=== PATIENT | female | born 1930 | race Caucasian/White ===

== ENCOUNTER 2016-09-25 08:51 | Inpatient (IN) | payer MEDICARE ==
[2016-09-25] MEDS ORDERED: NS 0.9% 1000 ML* 1,000 ML IV ONE (08:54)
--- NOTE | 2016-09-25 09:14 | RAD ---
Indication: Unresponsive. CT of the brain was performed without IV contrast. Comparison is made with previous exam dated August 03, 2011. Ventricular structures are midline. No midline shift is noted. The extra-axial spaces are unremarkable. Periventricular lucency consistent with chronic ischemic White matter change is noted. IMPRESSION: Chronic ischemic change without evidence of intracranial mass or hemorrhage. Results were discussed with Dr. Akers at 9:10 AM.
[2016-09-25] MEDS ORDERED: Iodixanol* (CONTRAST) 320 MG/ML 100 ML SDV IV ONE (09:21)
[2016-09-25 09:30] LABS: Hematocrit 44 % (35-47); Hemoglobin 14.1 g/dl (12.0-16.0); Mean Corpuscular HGB Conc 32 g/dl (31-36); Mean Corpuscular Hemoglobin 31 pg (27-31); Mean Corpuscular Volume 98 fL (80-97); Mean Platelet Volume 8 um3 (7.4-10.4); Red Cell Distribution Width 16 % (10.5-15)
[2016-09-25 09:35] LABS: Add Diff/Slide Review? Slide Review Added; Comments Flag Yes
[2016-09-25 09:47] LABS: Troponin I 0.03 ng/mL (<0.04)
[2016-09-25 09:49] LABS: Albumin 3.7 g/dL (3.2-5.2); BUN/Creatinine Ratio 26.3 (8-20); Calcium 9.7 mg/dL (8.6-10.3); EGFR Non-African American 36.6 (>60); Globulin 3.5 g/dL (2-4); HDL Cholesterol 53.1 mg/dL; Potassium 4.4 mmol/L (3.5-5.0); Total Bilirubin 0.5 mg/dL (0.2-1.0); Total Protein 7.2 g/dL (6.4-8.9)
--- NOTE | 2016-09-25 10:00 | RAD ---
INDICATION: Code hopper COMPARISON: August 23, 2014 TECHNIQUE: An AP portable view obtained at 0940 hours is submitted. The examination is rotated FINDINGS: Bones/Soft Tissues: There are no acute bony findings. Cardiomediastinal: The cardiac silhouette is normal when allowing for the degree of image rotation. Lungs: There are no infiltrates. There is vascular crowding due to the expiratory nature of the image. Pleura: There are no pleural effusions. There is biapical pleural scarring with calcification, unchanged. Other: None IMPRESSION: MILDLY LIMITED EXAMINATION DUE TO POSITIONING. NO ACTIVE DISEASE.
--- NOTE | 2016-09-25 10:22 | RAD ---
HISTORY: Neurological changes, stroke COMPARISONS: Carotid ultrasound dated September 25, 2014 TECHNIQUE: Multiple contiguous axial CT scans were obtained of the head and neck After the administration of nonionic intravenous contrast timed to the systemic arterial phase of contrast enhancement. Coronal and sagittal multiplanar reformations are submitted for review. Multiple 3-D maximum intensity projection reconstructions are also submitted for review. FINDINGS: Evaluation is limited by patient swallowing motion artifact. CTA NECK: AORTIC ARCH: There is a bovine configuration, with the left common carotid artery originating from the brachiocephalic trunk. There is atherosclerosis of the thoracic aorta. There is no ostial or proximal stenosis of the cephalic great vessels. RIGHT VERTEBRAL ARTERY: The right vertebral artery is patent along its course, without stenosis. LEFT VERTEBRAL ARTERY: The left vertebral artery is patent along its course, without stenosis. DOMINANCE: The left vertebral artery is dominant. RIGHT COMMON CAROTID ARTERY: The right common carotid artery is patent. The right carotid bifurcation occurs at C4-C5 RIGHT INTERNAL CAROTID ARTERY: There is calcified atherosclerotic plaque of the right carotid bifurcation. Evaluation of the right internal carotid artery diameter by NASCET criteria is limited by patient swallowing motion artifact. There is no appreciable high-grade stenosis. The right internal carotid artery is tortuous. RIGHT EXTERNAL CAROTID ARTERY: The right external carotid artery is unremarkable. LEFT COMMON CAROTID ARTERY: The left common carotid artery is patent. The left carotid bifurcation occurs at C4-C5 LEFT INTERNAL CAROTID ARTERY: There is no left internal carotid artery stenosis by NASCET criteria. Left internal carotid artery is tortuous. LEFT EXTERNAL CAROTID ARTERY: The left external carotid artery is unremarkable. VENOUS CIRCULATION: The venous system is unremarkable. SALIVARY GLANDS: The parotid glands, submandibular glands, sublingual glands are normal. NASAL CAVITY/NASOPHARYNX: The nasal cavity and nasopharynx are normal. ORAL CAVITY/OROPHARYNX: The oral cavity is obscured by streak artifact from dental amalgam. The visualized oral cavity and oropharynx are unremarkable. LARYNGEAL APPARATUS/HYPOPHARYNX: The laryngeal apparatus and hypopharynx are normal. UPPER AIRWAY/UPPER ESOPHAGUS: The visualized upper airway and esophagus are normal. LUNG APICES: There are calcified pleural plaques THYROID GLAND: The thyroid gland is normal. LYMPH NODES: There is no lymphadenopathy by size criteria. BONES AND SOFT TISSUES: Degenerative changes are noted of the spine CTA HEAD: INTRACRANIAL CIRCULATION: There is occlusion of the posterior division M2 segment of the left middle cerebral artery. There is an associated parenchymal perfusion defect of the left posterior frontal lobe and parietal lobe The anterior communicating artery complex is clear. There is a origin of the right posterior cerebral artery. VENOUS CIRCULATION: The venous system is unremarkable. PERFUSION: As noted above, there is a left posterior frontal/parietal perfusion defect HEMORRHAGE/INFARCT: There is no hemorrhage. There is no appreciable acute infarct. MASSES/SHIFT: There is no mass or shift. EXTRA-AXIAL SPACES: There are no extra-axial fluid collections. SULCI AND VENTRICLES: The sulci and ventricles are normal in size and position for the patient's stated age. CEREBRUM: There is hypoattenuation of the periventricular and subcortical white matter. BRAINSTEM: There are no focal parenchymal abnormalities. CEREBELLUM: There are no focal parenchymal abnormalities. PARANASAL SINUSES: The paranasal sinuses are clear. ORBITS: The orbits are unremarkable. BONES AND SOFT TISSUE: No bone or soft tissue abnormalities are noted. OTHER: There is no abnormal enhancement. IMPRESSION: 1. THERE IS OCCLUSION OF THE M2 SEGMENT OF THE LEFT MIDDLE CEREBRAL ARTERY WITH ASSOCIATED PERFUSION DEFECT OF THE LEFT POSTERIOR FRONTAL AND PARIETAL LOBE. 2. ATHEROSCLEROSIS. 3. NO LEFT INTERNAL CAROTID ARTERY STENOSIS BY NASCET CRITERIA. EVALUATION OF THE RIGHT INTERNAL CAROTID ARTERY IS LIMITED BY PATIENT SWALLOWING MOTION ARTIFACT. 4. CALCIFIED PLEURAL PLAQUES. PRELIMINARY FINDINGS WERE DISCUSSED WITH DR. CLEMENTS AT APPROXIMATELY 10:17 AM ON SEPTEMBER 25, 2016. CPT II Codes: 3100F
[2016-09-25] MEDS: Morphine INJ* 2 MG/ML 1 ML SYRINGE IV PRN ×3 (11:33→14:20)
[2016-09-25] MEDS ORDERED: Morphine INJ* 2 MG/ML 1 ML SYRINGE ONE (11:33)
[2016-09-25] MEDS: Atropine 1% (ORAL/SL)* 15 ML BTL SL PRN ×2 (12:29→19:37)
[2016-09-25 12:53] VITALS: BP 171/71
--- NOTE | 2016-09-25 13:30 | HP ---
CC: Dr. Ayala * HOSPITAL MEDICINE HISTORY AND PHYSICAL: DATE OF ADMISSION: 09/25/16 PRIMARY CARE PHYSICIAN: Dr. Ayala. ATTENDING PHYSICIAN: Dr. Jn Garvin *(dictation provided by Nataliia Coleman NP) . CHIEF COMPLAINT: Found on floor, unable to speak. HISTORY OF PRESENT ILLNESS: Ms. Whitt is an 86-year-old female with a past medical history of hypertension, osteoporosis, anemia, hyperlipidemia, anxiety and gout, who presented to the hospital today after being found on the floor. The patient lives alone. She was last seen by Dr. Ayala, her primary care physician, last week. At that time, the patient reported that she had a "clean bill of health." Today, the patient was found on the floor by her niece. The patient was initially unable to speak, but appeared to be moving all extremities. She was brought to the emergency room via EMS. In the emergency room, she is now evidencing right-sided flaccidity. She has a left-sided gaze. Her pupils are equal. She is responsive occasionally to voice and will open her eyes, but does not follow commands. She had a CT of the brain, which showed no acute abnormality, but the head CTA did confirm an occlusion of the M2 segment of the left middle cerebral artery with associated perfusion defect of the left posterior frontal and parietal lobe. She was also found to be in atrial fibrillation. There is no evidence that this has been noted in the past per the family or the electronic medical record. The patient was seen in consultation by Dr. Nicole from Neurology who spoke with the family at length. Based on the patient's age and wishes regarding end of life, the family has opted not to transfer the patient to a tertiary care facility for further intervention and are opting for comfort care only. PAST MEDICAL HISTORY: 1. GERD. 2. Hyperlipidemia. 3. Gout. 4. Anxiety. 5. Hypertension. 6. Anemia. 7. Osteoporosis. MEDICATIONS: 1. Alprazolam 0.25 mg p.o. t.i.d. p.r.n. 2. Allopurinol 100 mg p.o. daily. 3. Aspirin 81 mg p.o. daily. 4. Calcium carbonate 600 mg p.o. b.i.d. 5. Cholecalciferol 2000 units p.o. monthly. 6. Cyanocobalamin 1000 mcg IM monthly. 7. Diltiazem CD 180 mg p.o. daily. 8. Enalapril 20 mg p.o. daily. 9. Esomeprazole 40 mg p.o. daily. 10. Ferrous gluconate 650 mg p.o. daily. 11. Furosemide 40 mg daily. 12. Simvastatin 20 mg p.o. at bedtime. ALLERGIES: ADHESIVE TAPE. FAMILY HISTORY: Reviewed and noncontributory. SOCIAL HISTORY: No reported alcohol, tobacco or drug use. The patient lives alone. Her healthcare proxy is Bibiana Kay. REVIEW OF SYSTEMS: Unobtainable. PHYSICAL EXAMINATION GENERAL: Ms. Whitt is lying in the bed, she appears comfortable. VITAL SIGNS: Temperature 96.5, heart rate 85, respiratory rate 20, O2 saturation 100% on room air, and blood pressure 185/80. HEENT: Her pupils are equal and reactive. She has a left-sided gaze. She does have a left-sided facial weakness. LUNGS: Appear to be clear. A little bit difficult to assess with her positioning in the bed. She does have a lot of upper airway secretions and gurgling. HEART: S1 and S2. No murmur, rub, or gallop. ABDOMEN: Soft. Bowel sounds are positive. EXTREMITIES: No cyanosis, no edema. NEUROLOGIC: She awakened her eyes once to her daughter's voice calling mom. She is otherwise having sonorous respirations. She has been reported to move her left upper extremity, although I do not see that here today. No movement. Left arm is contracted. Right arm is flaccid. Right foot no Babinski. The patient has upward response for Babinski with extension of the foot on the left. SKIN: Intact. LABORATORY DATA: WBC 13.0, hemoglobin 14.1, hematocrit 44, platelet count 270. INR 0.91. Sodium 137, potassium 4.4, chloride 99, serum bicarbonate 30, BUN 36, creatinine 1.37, glucose 121, lactic acid 2.2. CT brain was read as follows: "Chronic ischemic change without evidence of intracranial mass or hemorrhage." Head CTA was read as follows: "There is occlusion of the M2 segment of the left middle cerebral artery with associated perfusion defect of the left posterior, frontal, and parietal lobe. Atherosclerosis, no left internal carotid artery stenosis by NASCET criteria. Evaluation of the right internal carotid artery is limited by patient's swallowing motion artifact. Calcified pleural plaques. ASSESSMENT: Ms. Whitt is an 86-year-old female with a past medical history of gastroesophageal reflux disease, hyperlipidemia, hypertension, anemia, osteoporosis, gout and anxiety, who presents to the hospital today after being found on the floor, and is found to be in newly noted atrial fibrillation with an acute left middle cerebral artery stroke with profound right-sided weakness and depressed mentation. On lengthy discussion with the multiple family members at the bed, they note that the patient would "not want to go on like this." They have opted to forego any aggressive treatment including transfer to tertiary care facility and are opting for comfort care. Our plan will be to continue with morphine, atropine, and any other supportive measures as needed for the patient and family. I have consulted the hospice care team to provide support as well. TIME SPENT: Approximately 60 minutes was spent in the admission of this patient , more than half the time was spent with the patient at the bedside reviewing the events leading up to this hospitalization, performing the physical examination, and reviewing the plan of care. NATALIIA COLEMAN NP [id number]/[facility] #: [id number] MAN[place]
[2016-09-25] MEDS ORDERED: Morphine ORAL CONCENTRATE* 5 MG/0.25 ML ORAL.SYRIN SL PRN (16:19)
--- NOTE | 2016-09-25 16:24 | CONS ---
CONSULTATION REPORT: DATE OF CONSULT: 09/25/16 PATIENT OF: Dr. Ayala and Nataliia Coleman. HISTORY OF PRESENT ILLNESS: This is an 86-year-old right-handed woman who was seen by her family last night, at which time she looked no different than usual. She lives alone. They note that in the evening, she tends to be a little confused and has some slurred or slightly garbled speech, but they noticed no difference last night compared to prior nights. This morning, she was apparently preparing for a breakfast date with one of her family and she was found by the family member collapsed on the bathroom floor partly dressed. It is not clear what time she woke up, although the family states that she wakes up at 7, this is not proven and it is not known whether she had any partial deficit prior to getting dressed. She has no prior stroke and she was brought in to the emergency room hemiparetic, aphasic, with left gaze preference. She has no past history of atrial fibrillation, but was found to be in atrial fibrillation in the emergency room. PAST MEDICAL HISTORY: Significant for: 1. GERD. 2. Hyperlipidemia. 3. Gout. 4. Anxiety. 5. Hypertension. 6. Anemia. 7. Osteoporosis. PAST SURGICAL HISTORY: There are no recent surgeries. MEDICATIONS: Include: 1. Alprazolam 0.25 mg t.i.d. p.r.n. 2. Allopurinol 100 mg daily. 3. Aspirin 81 mg daily. 4. Calcium carbonate 600 mg p.o. b.i.d. 5. Cholecalciferol 2000 units monthly. 6. Cyanocobalamin 1000 mcg monthly. 7. Diltiazem 180 CD daily. 8. Enalapril 20 mg daily. 9. Esomeprazole 40 mg daily. 10. Ferrous gluconate 650 p.o. daily. 11. Furosemide 40 mg daily. 12. Simvastatin 20 mg at bedtime. ALLERGIES: She is allergic to ADHESIVE TAPE. FAMILY HISTORY: Negative for stroke. SOCIAL HISTORY: She does not drink, use drugs, or tobacco. She lives alone. Her healthcare proxy is her daughter, Bibiana Kay, who is my [employer]IP[employer]. REVIEW OF SYSTEMS: Unobtainable from the patient. She has had no recent complaints according to her many family members who I spoke to. PHYSICAL EXAMINATION: Temperature 99.1, pulse 121 and irregular, respirations 20, blood pressure 171/71. She had her eyes open with left gaze deviation. She had no speech and could not follow any commands. She had right facial weakness, which appeared to be lower motor neuron. It was hard to assess visual driver, but seems decreased to the right to threat, she moved her left. Rest of cranial nerves II through XII were intact. Motor exam revealed normal tone. She had no movement in her right side, arm and leg. She had good movement with power on the left side. Reflexes were 1 and equal. Toe was upgoing on the right and downgoing on the left. Sensation, she appeared to react to touch and mild noxious stimulation on the left side, but not the right. Chest: Clear. Cardiovascular: Irregular rate and rhythm. Abdomen is soft with positive bowel sounds. DIAGNOSTIC STUDIES: Her CT scan was reviewed by me, as well as her CTA. Her CT scan showed diffuse white matter disease with some hypodensity in the frontotemporal area, but not out of proportion to hypodensities elsewhere. There was no bleed or clearcut subacute stroke. Her CTA, I spoke to Dr. Brenner and reviewed as well, and showed occlusion of the M2 segment of the left middle cerebral artery. Her EKG showed atrial fibrillation. LABORATORY DATA: Blood work included white count of 13, hematocrit of 44, platelets of 270. INR 0.9. PTT 25.3. CMP had a chloride of 99, creatinine 1.37, BUN of 36, glucose 121. Lactic acid 2.2. AST 83, ALT 96, LDL 79. ASSESSMENT AND PLAN: Carmen was not a tPA candidate because her last known well was the evening before. It is likely that she did not have a complete stroke at the time she was getting dressed. It is unclear when this was and if she had a stuttering stroke, this is completely unclear. I called [facility], as she was going to [facility], to discuss if she likely had a large vessel stroke and that may be amenable to clot retrieval and initiated detailed discussions with the family regarding this as well. The family, after significant discussion, decided not to opt for transfer to [facility] for possible clot retrieval. They were present at the conversation I had with the stroke attending regarding clot retrieval. She was a potential but not definite candidate, but she might have to have perfusion studies at [facility] to get a sense of likelihood of the success of the procedure, but it was possible that the procedure could be done that could significantly improve her chances of a meaningful, even sometimes dramatic recovery. Also discussed with the family that it is very likely that this event was going to turn into a major stroke with ongoing aphasia, hemiparesis, and she may not walk or talk after this, and there is a high chance that she will be left with significant disability such as that and it was even possible that she could with such a stroke. The family decided, based on conversations they had with her, that she would not want to pursue intervention at [facility] and declined a transfer. We also discussed that her stroke may be to the point that she might need to be intubated to prevent respiratory arrest, and they did not plan to pursue that if she makes a recovery , there will be an issue of whether to anticoagulate but that would be premature. She should be on a rectal aspirin. Thank you for sharing her case. [id number]/[facility] #: [id number] [place]
[2016-09-25] MEDS: Morphine ORAL CONCENTRATE* 5 MG/0.25 ML ORAL.SYRIN SL PRN ×4 (17:56→23:04)
--- NOTE | 2016-09-25 18:11 | ED ---
Hong Castro Rebecca, scribed for Emory Akers MD on 09/25/16 at 0910 . Neurological HPI - HPI Summary HPI Summary: Pt is an 86 y/o F BIBA who presents to ED with unresponsiveness with R-sided weakness. Last seen normal at 1930 last night but EMS report that when she was found in the bathroom, it appeared as though she was dressed and getting ready for the day. EMS report that she does not respond to simple commands. En route to [facility] she was tachycardic with a BP of 150/110. PMHx HTN. Is not on blood thinners. Pt lives alone. Level 5 caveat due to AMS characterized as unresponsiveness. - History of Current Complaint Stated Complaint: POSSIBLE CODE AGUIRRE Time Seen by Provider: 09/25/16 08:54 Hx Obtained From: Family/Dietetics Director - Daughter, EMS Hx From Patient Unobtainable Due To: Altered Mental Status Hx Last Menstrual Period: n/a Onset/Duration: Still Present Character: Responsiveness - Unresponsive Associated Signs and Symptoms: Positive: Weakness - R-sided - Allergy/Home Medications Allergies/Adverse Reactions: Allergies Allergy/AdvReac Type Severity Reaction Status Date / Time adhesive tape Allergy Rash Uncoded 08/23/14 11:21 Home Medications: Home Medications Aspirin EC Low Dose* [Ecotrin EC Low Dose 81 MG*] 81 mg PO DAILY 09/25/16 [ History Confirmed 09/25/16] Calcium Carbonate [Calcium 600] 600 mg PO BID 09/25/16 [History Confirmed ] Cholecalciferol TAB* [Vitamin D TAB*] 2,000 units PO MONTHLY 09/25/16 [History Confirmed 09/25/16] Cyanocobalamin INJ * [Vitamin B12 INJ *] 1,000 mcg IM MONTHLY 09/25/16 [History Confirmed 09/25/16] Diltiazem CD CAP* [Cardizem CD CAP*] 180 mg PO DAILY 09/25/16 [History Confirmed 09/25/16] Esomeprazole(NF) [NexIUM(NF)] 40 mg PO DAILY 09/25/16 [History Confirmed ] Furosemide TAB* [Lasix TAB*] 40 mg PO DAILY 09/25/16 [History Confirmed 09/25/16 ] Simvastatin TAB(NF) [Zocor(NF)] 20 mg PO BEDTIME 09/25/16 [History Confirmed 09/04] PMH/Surg Hx/FS Hx/Imm Hx Endocrine/Hematology History: Denies: Hx Diabetes, Hx Thyroid Disease Cardiovascular History: Reports: Hx Hypertension Denies: Hx Atrial Fibrillation, Hx Pacemaker/ICD Respiratory History: Denies: Hx Asthma, Hx Chronic Obstructive Pulmonary Disease (COPD) GI History: Comment Only: Hx Ulcer - gerd Musculoskeletal History: Reports: Hx Osteoporosis Denies: Hx Rheumatoid Arthritis Sensory History: Denies: Hx Hearing Aid Psychiatric History: Denies: Hx Panic Disorder - Surgical History Surgery Procedure, Year, and Place: BILTAERAL HIP REPLACEMENT Infectious Disease History: Denies: Hx Clostridium Difficile, Hx Hepatitis, Hx Human Immunodeficiency Virus (HIV), Hx of Known/Suspected MRSA, Hx Shingles, Hx Tuberculosis - Family History Known Family History: Positive: Other - Lung CA - Social History Lives: Alone Alcohol Use: None Substance Use Type: Reports: None Smoking Status (MU): Never Smoked Tobacco Review of Systems - ROS Summary Review of Systems Summary: Level 5 caveat due to AMS characterized as unresponsiveness. Positive: Other - Tachycardic and hypertensive per EMS en route to [facility] Neurological: Other - AMS - unresponsiveness Positive: Weakness - R-sided weakness All Other Systems Reviewed And Are Negative: No Physical Exam - Summary Physical Exam Summary: VITAL SIGNS: Reviewed. GENERAL: ~Patient is an unresponsive female who is lying in the stretcher. ~ Patient is not in any acute respiratory distress. HEAD AND FACE: No signs of trauma. ~No ecchymosis, hematomas or skull depressions. EYES: Pupils are reactive to light but with a gaze to the left side. No injected conjunctiva, no nystagmus. No photophobia. EARS: Ear canals and tympanic membranes are within normal limits. MOUTH: Oropharynx within normal limits. LUNGS: Clear to auscultation bilaterally. No wheezing or crackles. CVS: Regular rate and rhythm, S1 and S2 present, no murmurs or gallops appreciated. ABDOMEN: Soft. No signs of distention. Bowel sounds are normal. EXTREMITIES: FROM in all major joints, no edema, no cyanosis or clubbing. NEURO: Does not follow commands. SKIN: Dry and warm NIH: 29 Triage Information Reviewed: Yes Vital Signs On Initial Exam: Initial Vitals Pulse Resp Pulse Ox 96 22 100 09/25/16 09:06 09/25/16 09:06 09/25/16 09:06 Vital Signs Reviewed: Yes Diagnostics - Vital Signs Vital Signs Temp Pulse Resp BP Pulse Ox 09/25/16 11:47 69 20 170/70 100 09/25/16 11:45 86 22 260/239 98 09/25/16 11:36 185/80 09/25/16 11:33 20 09/25/16 11:30 94 20 237/219 09/25/16 11:15 73 24 190/114 09/25/16 11:05 85 23 154/130 09/25/16 11:02 75 20 187/83 98 09/25/16 11:00 199/178 09/25/16 10:57 79 21 136/85 98 09/25/16 10:50 23 112/59 09/25/16 10:48 21 118/60 09/25/16 10:45 17 179/139 09/25/16 10:38 81 15 97 09/25/16 10:36 188/165 09/25/16 10:30 135/118 09/25/16 09:44 100 09/25/16 09:42 96.5 F 127 20 141/70 100 09/25/16 09:15 128 24 131/88 90 09/25/16 09:08 19 120/87 09/25/16 09:06 96 22 100 - Laboratory Lab Results: Lab Results 09/25/16 09/25/16 09/25/16 Range/Units 08:54 08:54 08:54 WBC 13.0 H (3.5-10.8) 10^3/ul RBC 4.50 (4.0-5.4) 10^6/ul Hgb 14.1 (12.0-16.0) g/dl Hct 44 (35-47) % MCV 98 H (80-97) fL MCH 31 (27-31) pg MCHC 32 (31-36) g/dl RDW 16 H (10.5-15) % Plt Count 270 (150-450) 10^3/ul MPV 8 (7.4-10.4) um3 Neut % (Auto) 78.9 (38-83) % Lymph % (Auto) 12.6 L (25-47) % [place] % (Auto) 7.5 (1-9) % Eos % (Auto) 0.6 (0-6) % Baso % (Auto) 0.4 (0-2) % Absolute Neuts (auto) 10.2 H (1.5-7.7) 10^3/ul Absolute Lymphs (auto) 1.6 (1.0-4.8) 10^3/ul Absolute Monos (auto) 1.0 H (0-0.8) 10^3/ul Absolute Eos (auto) 0.1 (0-0.6) 10^3/ul Absolute Basos (auto) 0.1 (0-0.2) 10^3/ul Absolute Nucleated RBC 0 10^3/ul Nucleated RBC % 0 INR (Anticoag Therapy) 0.91 (0.89-1.11) APTT 25.3 L (26.0-36.3) seconds Sodium 137 (133-145) mmol/L Potassium 4.4 (3.5-5.0) mmol/L Chloride 99 L (101-111) mmol/L Carbon Dioxide 30 (22-32) mmol/L Anion Gap 8 (2-11) mmol/L BUN 36 H (6-24) mg/dL Creatinine 1.37 H (0.51-0.95) mg/dL Est GFR ( Amer) 47.0 (>60) Est GFR (Non-Af Amer) 36.6 (>60) BUN/Creatinine Ratio 26.3 H (8-20) Glucose 121 H (70-100) mg/dL POC Glucose (mg/dL) (70-100) mg/dL Lactic Acid (0.5-2.0) mmol/L Calcium 9.7 (8.6-10.3) mg/dL Total Bilirubin 0.50 (0.2-1.0) mg/dL AST 83 H (13-39) U/L ALT 96 H (7-52) U/L Alkaline Phosphatase 97 (34-104) U/L Troponin I 0.03 (<0.04) ng/mL Total Protein 7.2 (6.4-8.9) g/dL Albumin 3.7 (3.2-5.2) g/dL Globulin 3.5 (2-4) g/dL Albumin/Globulin Ratio 1.1 (1-3) Triglycerides 147 mg/dL Cholesterol 161 mg/dL LDL Cholesterol 79 mg/dL HDL Cholesterol 53.1 mg/dL Blood Type Antibody Screen 09/25/16 09/25/16 09/25/16 Range/Units 08:54 08:54 09:37 WBC (3.5-10.8) 10^3/ul RBC (4.0-5.4) 10^6/ul Hgb (12.0-16.0) g/dl Hct (35-47) % MCV (80-97) fL MCH (27-31) pg MCHC (31-36) g/dl RDW (10.5-15) % Plt Count (150-450) 10^3/ul MPV (7.4-10.4) um3 Neut % (Auto) (38-83) % Lymph % (Auto) (25-47) % [place] % (Auto) (1-9) % Eos % (Auto) (0-6) % Baso % (Auto) (0-2) % Absolute Neuts (auto) (1.5-7.7) 10^3/ul Absolute Lymphs (auto) (1.0-4.8) 10^3/ul Absolute Monos (auto) (0-0.8) 10^3/ul Absolute Eos (auto) (0-0.6) 10^3/ul Absolute Basos (auto) (0-0.2) 10^3/ul Absolute Nucleated RBC 10^3/ul Nucleated RBC % INR (Anticoag Therapy) (0.89-1.11) APTT (26.0-36.3) seconds Sodium (133-145) mmol/L Potassium (3.5-5.0) mmol/L Chloride (101-111) mmol/L Carbon Dioxide (22-32) mmol/L Anion Gap (2-11) mmol/L BUN (6-24) mg/dL Creatinine (0.51-0.95) mg/dL Est GFR ( Amer) (>60) Est GFR (Non-Af Amer) (>60) BUN/Creatinine Ratio (8-20) Glucose (70-100) mg/dL POC Glucose (mg/dL) 115 H (70-100) mg/dL Lactic Acid 2.2 H* (0.5-2.0) mmol/L Calcium (8.6-10.3) mg/dL Total Bilirubin (0.2-1.0) mg/dL AST (13-39) U/L ALT (7-52) U/L Alkaline Phosphatase (34-104) U/L Troponin I (<0.04) ng/mL Total Protein (6.4-8.9) g/dL Albumin (3.2-5.2) g/dL Globulin (2-4) g/dL Albumin/Globulin Ratio (1-3) Triglycerides mg/dL Cholesterol mg/dL LDL Cholesterol mg/dL HDL Cholesterol mg/dL Blood Type O Positive Antibody Screen Negative Result Diagrams: 09/25/16 08:54 09/25/16 08:54 Lab Statement: Any lab studies that have been ordered have been reviewed, and results considered in the medical decision making process. - Radiology CXR Xray Interpretation: No Acute Changes - MILDLY LIMITED EXAMINATION DUE TO POSITIONING. NO ACTIVE DISEASE. Radiology Interpretation Completed By: Radiologist - CT Brain CT CT Interpretation: No Acute Changes - Chronic ischemic change without evidence of intracranial mass or hemorrhage. Results were discussed with Dr. Akers at 9: [address] Interpretation Completed By: Radiologist CTA Head/Neck CT Interpretation: Positive (See Comments) - 1. THERE IS OCCLUSION OF THE M2 SEGMENT OF THE LEFT MIDDLE CEREBRAL ARTERY WITH ASSOCIATED PERFUSION DEFECT OF THE LEFT POSTERIOR FRONTAL AND PARIETAL LOBE. 2. ATHEROSCLEROSIS. 3. NO LEFT INTERNAL CAROTID ARTERY STENOSIS BY NASCET CRITERIA. EVALUATION OF THE RIGHT INTERNAL CAROTID ARTERY IS LIMITED BY PATIENT SWALLOWING MOTION ARTIFACT. 4. CALCIFIED PLEURAL PLAQUES. PRELIMINARY FINDINGS WERE DISCUSSED WITH DR. NICOLE AT APPROXIMATELY 10:17 AM ON SEPTEMBER 25, 2016. 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 Facial Paresis-Pt to Smile & Close Eyes or Grimace Symmetry: Minor Paralysis Motor Function - Right Arm: No Movement Motor Function - Left Arm: No Drift-Holds 10 Seconds Motor Function - Right Leg: No Movement Motor Function - Left Leg: No Drift-Holds 10 Seconds Limb Ataxia-Must be out of Proportion to Weakness Present: Present in Two Limbs Sensory (Use Pinprick to Test Arms/Legs/Trunk/Face): Severe to Total Loss Best Language (Describe Picture, Name Items): Mute/Global Aphasia Dysarthria (Read Several Words): Unintelligible or Mute Extinction and Inattention: Profound Bryan-Inattention Total Score: 29 Re-Evaluation - Re-Evaluation First Eval Re-Evaluation Time: 09:00 Comment: Pt has returned from CT and the PE is performed, revealing a left- sided gaze and she is not reponding to verbal commands. Second Eval Re-Evaluation Time: 09:11 Comment: Discussed conversation with Dr. Nicole with the family and that a CTA will be done Course/Dx - Course Assessment/Plan: Pt is an 86 y/o F BIBA who presents to ED with unresponsiveness with R-sided weakness. Last seen normal at 1930 last night but EMS report that when she was found in the bathroom, it appeared as though she was dressed and getting ready for the day. EMS report that she does not respond to simple commands. En route to [facility] she was tachycardic with a BP of 150/ 110. PMHx HTN. Is not on blood thinners. Pt lives alone. Level 5 caveat due to AMS characterized as unresponsiveness. Dr. Nicole came and assessed the pt and he requested not to intubate the pt at this time, seeing as she is maintaing her airway. Test results with WBC of 13, increased BUN and creatinine significant for renal insufficiency, glucose 121, increase LFTs. Initially, we called phillip caballero, seeing as the pt has R-sided weakness and deviation of gaze to the left side. Dr. Nicole came and assessed the pt and after his assessment he recommended a CTA head/neck. He reports that she is not a candidate for TPA seeing as we do not know onset of sx. CTA is consistent with a MCA ischemic infarct. Family members decline intubation for this patient. The pt is maintaining airway and saturating 98% on RA. I disclosed the case with Dr. Garvin who accepted for admission. She is not alert, still lethargic but hemodynamically stable. - Differential Dx Differential Diagnoses Neuro: Positive: Cerebrovascular Accident, Coronary Artery Disease, Hypertension, Hypoxia, Seizure Disorder, Transient Ischemic Attack, Vasovagal Reaction - Diagnoses Provider Diagnoses: Ischemic stroke, Renal injury During the Visit The Following Alert/Code Occurred: Code Cchf - 6449 - Physician Notifications Discussed Care Of Patient With: Rob Nicole Time Discussed With Above Provider: 09:09 Instructed by Provider To: Other - Ordered a STAT CTA and will evaluate the pt in the ED. Discussed care of pt with Dr. Jn Garvin, hospitalist, at 1100 who accepts pt for admission. - Critical Care Time Critical Care Time: 30-74 min - 30 minutes Discharge - Discharge Plan Condition: Critical Disposition: ADMITTED TO [facility] documentation as recorded by the Hong del toro Rebecca accurately reflects the service I personally performed and the decisions made by Oswald rosales Walter, MD.
--- NOTE | 2016-09-25 20:29 | RAD ---
INDICATION: Left knee pain COMPARISON: None TECHNIQUE: 3 view radiograph of the left knee. FINDINGS: Degenerative changes of the left knee include medial and lateral joint space narrowing. There is calcification overlying the expected location of the menisci. There is no large joint effusion seen on the lateral view. The visualized bones are intact and appropriately aligned. There is no cortical discontinuity of the tibia to indicate a tibial plateau fracture. IMPRESSION: Degenerative changes as described above without radiographically apparent acute fracture or dislocation. If the patient's symptoms persist, follow-up imaging is recommended.
[2016-09-26] MEDS: Morphine ORAL CONCENTRATE* 5 MG/0.25 ML ORAL.SYRIN SL PRN ×11 (00:57→22:04)
[2016-09-26] MEDS ORDERED: LORazepam TAB(*) 1 MG PO PRN (01:33)
[2016-09-26] MEDS ORDERED: LORazepam INJ* 2 MG/ML 1 ML VIAL ONE (01:39)
[2016-09-26] MEDS: LORazepam INJ* 2 MG/ML 1 ML VIAL IV PUSH PRN ×3 (01:43→12:19)
--- NOTE | 2016-09-26 08:37 | PN ---
Subjective Date of Service: 09/26/16 Interval History: Patient seen this morning with family at bedside. Patient not responsive at this time, some tachypnea at times, ?mild esther- phan. Daughters have differing opinions on how patient is currently doing and level of alertness. Family History: Unchanged from Admission Social History: Unchanged from Admission Past Medical History: Unchanged from Admission Objective Active Medications: Atropine Sulfate (Atropine 1% (Oral/Sl)*) 2 drop SL Q2H PRN PRN Reason: DISCOMFORT Last Admin: 09/25/16 19:37 Dose: 2 drop Lorazepam (Ativan Inj*) 1 mg IV PUSH Q1HR PRN PRN Reason: AGITATION Last Admin: 09/26/16 07:20 Dose: 1 mg Lorazepam (Ativan Tab(*)) 2 mg PO Q1HR PRN PRN Reason: AGITATION Morphine Sulfate (Morphine Oral Concentrate*) 5 mg SL Q1H PRN PRN Reason: Pain/dyspnea Last Admin: 09/26/16 06:28 Dose: 5 mg Vital Signs 09/25/16 09/25/16 09/25/16 12:00 12:01 12:38 Temperature Pulse Rate 55 64 Respiratory 20 33 20 Rate Blood Pressure 210/116 (mmHg) O2 Sat by Pulse 91 99 Oximetry 09/25/16 09/25/16 09/25/16 16:47 17:56 19:37 Temperature Pulse Rate Respiratory 16 20 20 Rate Blood Pressure (mmHg) O2 Sat by Pulse Oximetry 09/25/16 09/25/16 09/25/16 20:00 21:45 23:04 Temperature Pulse Rate Respiratory 20 20 20 Rate Blood Pressure (mmHg) O2 Sat by Pulse Oximetry Oxygen Devices in Use Now: Nasal Cannula Appearance: Elderly, F, laying in bed in NAD Respiratory: Symmetrical Chest Expansion and Respiratory Effort, Clear to Auscultation Cardiovascular: - - Tachycardia Abdominal: - - Soft, NTND Result Diagrams: 09/25/16 08:54 09/25/16 08:54 Additional Lab and Data: Lab Results 09/25/16 09/25/16 09/25/16 Range/Units 08:54 08:54 08:54 WBC 13.0 H (3.5-10.8) 10^3/ul RBC 4.50 (4.0-5.4) 10^6/ul Hgb 14.1 (12.0-16.0) g/dl Hct 44 (35-47) % MCV 98 H (80-97) fL MCH 31 (27-31) pg MCHC 32 (31-36) g/dl RDW 16 H (10.5-15) % Plt Count 270 (150-450) 10^3/ul MPV 8 (7.4-10.4) um3 Neut % (Auto) 78.9 (38-83) % Lymph % (Auto) 12.6 L (25-47) % [place] % (Auto) 7.5 (1-9) % Eos % (Auto) 0.6 (0-6) % Baso % (Auto) 0.4 (0-2) % Absolute Neuts (auto) 10.2 H (1.5-7.7) 10^3/ul Absolute Lymphs (auto) 1.6 (1.0-4.8) 10^3/ul Absolute Monos (auto) 1.0 H (0-0.8) 10^3/ul Absolute Eos (auto) 0.1 (0-0.6) 10^3/ul Absolute Basos (auto) 0.1 (0-0.2) 10^3/ul Absolute Nucleated RBC 0 10^3/ul Nucleated RBC % 0 INR (Anticoag Therapy) 0.91 (0.89-1.11) APTT 25.3 L (26.0-36.3) seconds Sodium 137 (133-145) mmol/L Potassium 4.4 (3.5-5.0) mmol/L Chloride 99 L (101-111) mmol/L Carbon Dioxide 30 (22-32) mmol/L Anion Gap 8 (2-11) mmol/L BUN 36 H (6-24) mg/dL Creatinine 1.37 H (0.51-0.95) mg/dL Est GFR ( Amer) 47.0 (>60) Est GFR (Non-Af Amer) 36.6 (>60) BUN/Creatinine Ratio 26.3 H (8-20) Glucose 121 H (70-100) mg/dL POC Glucose (mg/dL) (70-100) mg/dL Lactic Acid (0.5-2.0) mmol/L Calcium 9.7 (8.6-10.3) mg/dL Total Bilirubin 0.50 (0.2-1.0) mg/dL AST 83 H (13-39) U/L ALT 96 H (7-52) U/L Alkaline Phosphatase 97 (34-104) U/L Troponin I 0.03 (<0.04) ng/mL Total Protein 7.2 (6.4-8.9) g/dL Albumin 3.7 (3.2-5.2) g/dL Globulin 3.5 (2-4) g/dL Albumin/Globulin Ratio 1.1 (1-3) Triglycerides 147 mg/dL Cholesterol 161 mg/dL LDL Cholesterol 79 mg/dL HDL Cholesterol 53.1 mg/dL Blood Type Antibody Screen 09/25/16 09/25/16 09/25/16 Range/Units 08:54 08:54 09:37 WBC (3.5-10.8) 10^3/ul RBC (4.0-5.4) 10^6/ul Hgb (12.0-16.0) g/dl Hct (35-47) % MCV (80-97) fL MCH (27-31) pg MCHC (31-36) g/dl RDW (10.5-15) % Plt Count (150-450) 10^3/ul MPV (7.4-10.4) um3 Neut % (Auto) (38-83) % Lymph % (Auto) (25-47) % [place] % (Auto) (1-9) % Eos % (Auto) (0-6) % Baso % (Auto) (0-2) % Absolute Neuts (auto) (1.5-7.7) 10^3/ul Absolute Lymphs (auto) (1.0-4.8) 10^3/ul Absolute Monos (auto) (0-0.8) 10^3/ul Absolute Eos (auto) (0-0.6) 10^3/ul Absolute Basos (auto) (0-0.2) 10^3/ul Absolute Nucleated RBC 10^3/ul Nucleated RBC % INR (Anticoag Therapy) (0.89-1.11) APTT (26.0-36.3) seconds Sodium (133-145) mmol/L Potassium (3.5-5.0) mmol/L Chloride (101-111) mmol/L Carbon Dioxide (22-32) mmol/L Anion Gap (2-11) mmol/L BUN (6-24) mg/dL Creatinine (0.51-0.95) mg/dL Est GFR ( Amer) (>60) Est GFR (Non-Af Amer) (>60) BUN/Creatinine Ratio (8-20) Glucose (70-100) mg/dL POC Glucose (mg/dL) 115 H (70-100) mg/dL Lactic Acid 2.2 H* (0.5-2.0) mmol/L Calcium (8.6-10.3) mg/dL Total Bilirubin (0.2-1.0) mg/dL AST (13-39) U/L ALT (7-52) U/L Alkaline Phosphatase (34-104) U/L Troponin I (<0.04) ng/mL Total Protein (6.4-8.9) g/dL Albumin (3.2-5.2) g/dL Globulin (2-4) g/dL Albumin/Globulin Ratio (1-3) Triglycerides mg/dL Cholesterol mg/dL LDL Cholesterol mg/dL HDL Cholesterol mg/dL Blood Type O Positive Antibody Screen Negative Assess/Plan/Problems-Billing Assessment: L MCA stroke in an 86 yo F with hx of HTN, HLD, GERD, osteoporosis. Family has opted for comfort care - Patient Problems (1) CVA (cerebral vascular accident) Current Visit: Yes Comment: Family has opted for comfort care. Palliative care following. Continue current medication regimen. Will need to see how patient progresses over next 24-48 hours to determine whether she is a candidate to discharge to hospicare residence. Status and Disposition: Inpatient
[2016-09-26] MEDS ORDERED: Morphine PCA ADULT* 5 MG/ML 30 ML PCA SCH (13:00)
[2016-09-26] MEDS ORDERED: Acetaminophen SUPP* 650 MG SUPP PR PRN (21:48)
[2016-09-26] MEDS: Atropine 1% (ORAL/SL)* 15 ML BTL SL PRN (23:40)
[2016-09-27] MEDS: Morphine ORAL CONCENTRATE* 5 MG/0.25 ML ORAL.SYRIN SL PRN (01:06)
[2016-09-27] MEDS: Atropine 1% (ORAL/SL)* 15 ML BTL SL PRN (01:56)
--- NOTE | 2016-09-27 02:37 | PN ---
Progress Note - Progress Note Date of Service: 09/27/16 Note: Paged by RN for patient passing. Daughter at the bedside is very tearful. She called additional family members who are on their way in. No heart sounds or spontaneous respirations. Time of : 0158 AM. Please see full discharge summary for further details. certificate completed
--- NOTE | 2016-09-27 13:03 | DS ---
CC: Ev Ayala MD * SUMMARY: DATE OF ADMISSION: 09/25/16. DATE OF EXPIRATION: 09/27/16 at 0158 a.m. PRIMARY CARE PHYSICIAN: Ev Ayala MD CAUSE OF : Acute cerebrovascular infarct. SECONDARY DIAGNOSIS: Hypertension. HOSPITAL COURSE: Please refer to complete medical record for further details. In summary, this is an 86-year-old female who was living alone independent who was found down and collapsed on the bathroom floor after preparing breakfast. The family states that she had some confusion with slightly slurred speech the night before. It was not clear at what time she had woken up. On arrival to the emergency room on the , a phillip hopper was called. Head CT was negative. CTA found an acute left middle cerebral artery infarct. The patient was presented minimally responsive with right-sided weakness and paralysis and depressed mentation also with new onset AFib. The family had a lengthy discussion with the ER, the hospitalist, and the neurologist stating that the family would not want aggressive care and transfer to tertiary care facility and the decision was the plan for comfort care. The patient was admitted to the hospital on comfort care measures with morphine, atropine, and Ativan as needed for symptom management. Palliative care team was involved with the patient to help with symptom management as well. The patient passed comfortably at 0158 a.m. Cause of was acute cerebrovascular infarct. [id number]/[facility] #: [id number] MTDD
== END 2016-09-27 01:58 | disposition expired | DRG 65 ==
LOC: ED 08:51 → MED 11:59
PROVIDERS: ADMIT Internal Medicine; ATTEND Pediatrics
DX: I63.512 Cerebral infarction due to unspecified occlusion or stenosis of left middle cerebral artery (principal); G81.91 Hemiplegia, unspecified affecting right dominant side; I48.91 Unspecified atrial fibrillation; I10 Essential (primary) hypertension; E78.5 Hyperlipidemia, unspecified; M10.9 Gout, unspecified; R47.01 Aphasia; M81.0 Age-related osteoporosis without current pathological fracture; F41.9 Anxiety disorder, unspecified; K21.9 Gastro-esophageal reflux disease without esophagitis; R41.82 Altered mental status, unspecified; Z96.643 Presence of artificial hip joint, bilateral; R29.729 NIHSS score 29; Z51.5 Encounter for palliative care; R06.82 Tachypnea, not elsewhere classified; R29.810 Facial weakness; Z91.048 Other nonmedicinal substance allergy status; Z80.1 Family history of malignant neoplasm of trachea, bronchus and lung
CPT/HCPCS: 36415; 70450; 70496; 70498; 71010; 80053; 80061; 83605; 84484; 85025; 85610; 85730; 86850; 86900; 86901; 93005; 94760; A9270-GY; J2060; J2270; Q9967